=== PATIENT | male | born 1960 | race Caucasian/White ===

== ENCOUNTER 2016-12-22 20:39 | Inpatient (IN) | payer BC ==
[~2016-12-22] VITALS: Ht 177.8 cm; Wt 104.3 kg
[~2016-12-22 20:39] MED LIST: ACET-2154 PO; BUPR8TAB4 SL; CIME800T PO; DIPH50LI PO; HYDR118S4 TP; HYDR28CR45 TP; LORA2TAB95 PO; QUET300T2 PO; SULF1TAB48 PO; [UNRECOGNIZED DRUG - CODE] TP; [UNRECOGNIZED DRUG - CODE] TP
--- NOTE | 2016-12-22 21:35 | NUR ---
Staff attempted to start IV line for patient. Immediately after the initial puncture patient stated "did you get it" after which he demanded someone else and arguing with staff. Staff attempted to provide education regarding venipuncture procedures and patient remained argumentative with staff.
[2016-12-22 21:43] LABS: BASOPHILS % (AUTO) 0.7 % (0.0-2.0); EOSINOPHILS # (AUTO) 0.2 K/uL (0.0-0.7); EOSINOPHILS % (AUTO) 4.6 % (0.0-7.0); LYMPHOCYTES % (AUTO) 22.1 % (20.5-51.5); MEAN CORPUSCULAR HEMOGLOBIN 22.5 UUG (27.0-31.0); MEAN CORPUSCULAR HGB CONC 31 g/dL (32.0-37.0); MONOCYTES # (AUTO) 0.5 K/UL (0.1-1.30); MONOCYTES % (AUTO) 10.6 % (0.0-11.0); NEUTROPHILS # (AUTO) 2.9 K/UL (1.8-8.9); PLATELET COUNT (AUTO) 254 K/UL (150-450); RED BLOOD CELL COUNT(AUTO) 3.04 MIL/UL (4.7-6.1); WHITE BLOOD COUNT (AUTO) 4.6 K/UL (4.0-11.2)
[2016-12-22 21:52] LABS: CREATININE 1.1 mg/dL (0.6-1.3); POTASSIUM 3.1 mmol/L (3.5-5.1)
[2016-12-22 21:55] LABS: HEMATOCRIT 22.2 % (40-50); HEMOGLOBIN 6.8 G/DL (14.0-18.0)
[2016-12-22 22:04] LABS: BILIRUBIN,TOTAL 0.2 mg/dL (0.2-1.0); TOTAL PROTEIN, SERUM 6.1 g/dL (6.4-8.2)
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
[2016-12-22 22:31] LABS: *BILIRUBIN,URIN NEGATIVE (NEGATIVE); *BLOOD, URINE NEGATIVE (NEGATIVE); *COLOR,URINE YELLOW (YELLOW); *KETONES,URINE NEGATIVE (NEGATIVE); *PROTEIN,URINE NEGATIVE (NEGATIVE); *UROBILINOGEN,URINE 0.2 E.U./dl (NORMAL); LEUKOCYTE ESTERASE ,URINE NEGATIVE (NEGATIVE); NITRITE, URINE NEGATIVE (NEGATIVE); PH,URINE 7.5 (5.0-8.0); UGLUCOSE NEGATIVE (NEGATIVE)
[2016-12-22] MEDS ORDERED: POTASSIUM CHLORIDE 20 MEQ TAB.PRT.SR PO ONE (22:33)
[2016-12-22 22:40] LABS: *CLARITY,URINE CLEAR (CLEAR)
[2016-12-22 22:44] LABS: BACTERIA,URINE FEW /HPF (NONE SEEN); RBC,URINE 0-3 /HPF (0-3); SQUAMOUS EPITHELIAL CELL,UR FEW /HPF (NONE SEEN); URINE AMORPHOUS PHOSPHATES MODERATE /HPF; WBC,URINE 0-3 /HPF (0-3)
[2016-12-22 22:51] LABS: EOSINOPHILS % (MANUAL) 4 % (0-8); LYMPHOCYTES % (MANUAL) 23 % (20-40); MONOCYTES % (MANUAL) 8 % (2-10); NEUTROPHILS % (MANUAL) 65 % (42-75)
--- NOTE | 2016-12-22 23:00 | NUR ---
admit order written, belongings list done, pt was given asandwich to eat. awaiting dfor floor nurse to call back for report.
[2016-12-22] MEDS ORDERED: POTASSIUM CHLORIDE 20 MEQ TAB.PRT.SR ONE (23:05)
--- NOTE | 2016-12-22 23:17 | NUR ---
REPORT TO ONRU HI. PT TO ROOM 204 VIA W/C.
[2016-12-22] MEDS ORDERED: HYDROMORPHONE 1 MG/1 ML DISP.SYRIN IV PRN (23:45)
[2016-12-22] MEDS ORDERED: LORAZEPAM 1 MG TABLET PO PRN (23:45)
[2016-12-22] MEDS ORDERED: POTASSIUM CHLORIDE 20 MEQ in IV 1/2NS 1000 ML 1,000 ML IV PRN (23:45)
[2016-12-22] MEDS ORDERED: ACETAMINOPHEN 325 MG TABLET PO PRN (23:45)
[2016-12-22] MEDS ORDERED: Medication Not On Formulary EA (Quetiapine Fumarate (Seroquel) 300 MG) PO SCH (23:45)
[2016-12-22] MEDS ORDERED: MAGNESIUM HYDROXIDE 30 ML LIQUID UDC PO PRN (23:45)
[2016-12-22] MEDS ORDERED: ONDANSETRON 4 MG/2 ML VIAL IV PRN (23:45)
[2016-12-23] VITALS (12 sets, daily range): BP systolic 99–162; BP diastolic 45–78
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
[2016-12-23] MEDS ORDERED: HYDROMORPHONE 2 MG/1 ML DISP.SYRIN ONE ×2 (00:04→04:15)
[2016-12-23 00:17] LABS: IRON, SERUM 13 ug/dL (50-175)
[2016-12-23] MEDS: diphenhydrAMINE 50 MG/1 ML VIAL IV PRN ×2 (00:58→06:34)
[2016-12-23] MEDS ORDERED: diphenhydrAMINE 50 MG/1 ML VIAL ONE ×2 (01:08→06:38)
[2016-12-23] MEDS ORDERED: LORAZEPAM 1 MG TABLET ONE (01:09)
--- NOTE | 2016-12-23 01:44 | NUR ---
HGB AND HCT ARE LOW, ORDERED AND STARTED BLOOD TRANSFUSION 1 U PRBC WITH SINGED CONSENT. VITAL SIGNS ARE STABLE. MONITORED FOR BLOOD TRANSFUSION REACTION.
--- NOTE | 2016-12-23 03:40 | NUR ---
BLOOD TRANSFUSION COMPLETED. NO BLOOD TRANSFUSION REACTION NOTED. COMPLAINT OF PAIN AGAIN GIVEN IV DILAUDID, KEEP COMPLAINING THAT THE DOSE IS NOT ENOUGH TO RELIEVE HIS PAIN. STARTED IVF 0.45 NS WITH 20 MEQ KCL BUT PATIENT PULLED OUT AND STOP IVF, WALKED OUTSIDE THE ROOM. HE WAS MAD YELLING AT ME ASKING FOR CHARGE NURSE AND FOODS COMPLAINING HE IS DEHYDRATED DESPITE OF THE JELLO AND JUICE HE HAD SINCE LAST NIGHT. OTHERWISE PATIENT IS IN THE ROOM RIGHT NOW. SR ON TELE. VSS. CALL HI WITHIN REACH.
--- NOTE | 2016-12-23 05:30 | NUR ---
PATIENT SMOKED IN SIDE THE ROOM AGAIN FOR THE SECOND TIME, CONFISCATED CIGARETTE. SECURITY CALLED.
[2016-12-23 06:37] LABS: BASOPHILS % (AUTO) 0.6 % (0.0-2.0); EOSINOPHILS # (AUTO) 0.2 K/uL (0.0-0.7); EOSINOPHILS % (AUTO) 5.7 % (0.0-7.0); HEMOGLOBIN 7.4 G/DL (14.0-18.0); LYMPHOCYTES # (AUTO) 1.1 K/UL (0.8-4.8); LYMPHOCYTES % (AUTO) 28.5 % (20.5-51.5); MEAN CORPUSCULAR HEMOGLOBIN 23.6 UUG (27.0-31.0); MEAN CORPUSCULAR HGB CONC 32 g/dL (32.0-37.0); MEAN CORPUSCULAR VOLUME 74.4 FL (82.0-92.0); MONOCYTES # (AUTO) 0.5 K/UL (0.1-1.30); MONOCYTES % (AUTO) 12.9 % (0.0-11.0); NEUTROPHILS % (AUTO) 52.3 % (38.5-71.5); PLATELET COUNT (AUTO) 207 K/UL (150-450); RED BLOOD CELL COUNT(AUTO) 3.13 MIL/UL (4.7-6.1); WHITE BLOOD COUNT (AUTO) 3.8 K/UL (4.0-11.2)
[2016-12-23 06:41] LABS: HEMATOCRIT 23.3 % (40-50)
--- NOTE | 2016-12-23 06:42 | NUR ---
LAB CALLED FOR CRITICAL HGB RESULT OF 7.4 AFTER 1 U PRBC.TRENDING UP FROM 6.8 MG/DL.
[2016-12-23 07:04] LABS: THYROID STIMULATING HORMONE 2.278 mIU/mL (0.358-3.740)
[2016-12-23] MEDS ORDERED: PANTOPRAZOLE SODIUM 40 MG TABLET.DR PO SCH (07:10)
[2016-12-23 07:11] LABS: BILIRUBIN,TOTAL 0.8 mg/dL (0.2-1.0); CREATININE 1.1 mg/dL (0.6-1.3); POTASSIUM 4.1 mmol/L (3.5-5.1); TOTAL PROTEIN, SERUM 5.5 g/dL (6.4-8.2)
--- NOTE | 2016-12-23 07:20 | NUR ---
RECEIVED REPORT FROM ROAD CONTRACTOR NURSE, PATIENT IN BED ASLEEP, NO EVIDENCE OF DISTRESS NOTED AT THIS TIME. BED IN LOW POSITION, SIDE RAILS UP X2.
[2016-12-23 07:32] LABS: EOSINOPHILS % (MANUAL) 4 % (0-8); LYMPHOCYTES % (MANUAL) 34 % (20-40); MONOCYTES % (MANUAL) 7 % (2-10); NEUTROPHILS % (MANUAL) 55 % (42-75)
[2016-12-23] MEDS: HYDROMORPHONE 2 MG/1 ML DISP.SYRIN IV PRN ×2 (08:15→12:17)
--- NOTE | 2016-12-23 11:00 | NUR ---
BLOOD ORDERS RECEIVED AND STARTED ORDERED.
[2016-12-23] MEDS ORDERED: DOXY100C2 PO (13:44)
[2016-12-23] MEDS ORDERED: FERR325T28 PO (13:44)
--- NOTE | 2016-12-23 13:50 | NUR ---
BLOOD ADMINISTRATION COMPLETE, PATIENT BEING BELLIGERENT AND YELLING THAT HE NEEDS TO GO OUT AND HAVE A CIGARETTE, BEING UNCOOPERATIVE WITH VITALS BEING TAKEN AND DEMANDING THAT THE IV BE TAKEN OUT OF HIS ARM.
--- NOTE | 2016-12-23 14:06 | NUR ---
WOUND CARE CONSULT: PT OFF UNIT AT THIS TIME. WILL SEE PT FOR SKIN ASSESSMENT PT CONDITION PERMITS.
--- NOTE | 2016-12-23 14:10 | NUR ---
IV REMOVED, BLOOD STOPPED AND PATIENT DISCHARGE IS BEING PROCESSED.
--- NOTE | 2016-12-23 15:00 | NUR ---
PATIENT WAS ESCORTED OUT BY SECURITY PATIENT REFUSED TO TAKE A WHEELCHAIR.
[2016-12-23] MEDS ORDERED: QUETIAPINE FUMARATE 200 MG TABLET PO SCH (21:00)
[2016-12-23] MEDS ORDERED: DOCUSATE SODIUM 100 MG CAPSULE PO SCH (21:00)
== END 2016-12-23 15:00 | disposition home or self-care (01) | DRG 812 ==
LOC: ER 20:40 → TELE 22:55 → MED 12-23 12:04
PROVIDERS: ADMIT Internal Medicine; ATTEND Internal Medicine
PROC: 30233N1 Transfusion of Nonautologous Red Blood Cells into Peripheral Vein, Percutaneous Approach (ICD-10-PCS; principal; 2016-12-23)
DX: D50.9 Iron deficiency anemia, unspecified (principal); L03.115 Cellulitis of right lower limb; S91.301A Unspecified open wound, right foot, initial encounter; E87.6 Hypokalemia; E66.9 Obesity, unspecified; F11.11 Opioid abuse, in remission; F14.11 Cocaine abuse, in remission; F41.9 Anxiety disorder, unspecified; F17.210 Nicotine dependence, cigarettes, uncomplicated; R19.5 Other fecal abnormalities; F99 Mental disorder, not otherwise specified; R21 Rash and other nonspecific skin eruption; X58.XXXA Exposure to other specified factors, initial encounter; Y93.9 Activity, unspecified; Y92.009 Unspecified place in unspecified non-institutional (private) residence as the place of occurrence of the external cause; Z68.33 Body mass index [BMI] 33.0-33.9, adult; Z88.0 Allergy status to penicillin; F13.11 Sedative, hypnotic or anxiolytic abuse, in remission; F19.11 Other psychoactive substance abuse, in remission
CPT/HCPCS: 36415; 70030-TC; 71010; 83550; 84443; 85025; 85610; 86850; 86900; 86901; 86920; 93005; A4663; J1170; J1200; J3480; J3490; J7040; J7050; P9016-BL; P9021

== ENCOUNTER 2017-02-27 19:46 | Emergency (ER) | payer BC ==
[~2017-02-27] VITALS: Ht 177.8 cm; Wt 99.8 kg
[~2017-02-27 19:46] MED LIST changes: +DOXY100C2 PO; +FERR325T28 PO
[2017-02-27 20:45] LABS: BASOPHILS % (AUTO) 0.7 % (0.0-2.0); EOSINOPHILS # (AUTO) 0.3 K/uL (0.0-0.7); EOSINOPHILS % (AUTO) 4.4 % (0.0-7.0); HEMATOCRIT 37.2 % (36.7-47.1); HEMOGLOBIN 12.3 g/dL (12.5-16.3); LYMPHOCYTES % (AUTO) 15.3 % (20.5-51.5); MEAN CORPUSCULAR HGB CONC 33 g/dL (32.5-36.3); MEAN CORPUSCULAR VOLUME 84.8 fL (73.0-96.2); MONOCYTES # (AUTO) 0.4 K/uL (2.0-10.0); MONOCYTES % (AUTO) 6.9 % (0.0-11.0); NEUTROPHILS # (AUTO) 4.5 K/uL (1.8-8.9); NEUTROPHILS % (AUTO) 72.7 % (38.5-71.5); PLATELET COUNT (AUTO) 249 K/uL (152-348); RED BLOOD CELL COUNT(AUTO) 4.39 MIL/uL (4.06-5.63); WHITE BLOOD COUNT (AUTO) 6.2 K/uL (3.6-10.2)
[2017-02-27 21:03] LABS: CREATININE 0.8 mg/dL (0.6-1.3); POTASSIUM 4.2 mmol/L (3.5-5.1)
--- NOTE | 2017-02-27 21:25 | NUR ---
Patient discharged to home in stable conditon, ambulated out of ER with steady gait. Written and verbal after care instructions given as well as RX. Patient verbalizes understanding of instructions.
[2017-02-27 21:34] VITALS: BP 118/71
== END 2017-02-27 21:25 | disposition home or self-care (01) ==
LOC: ER 19:47
DX: B86 Scabies (principal); M25.562 Pain in left knee; Z88.0 Allergy status to penicillin; Z88.6 Allergy status to analgesic agent; Z91.013 Allergy to seafood
CPT/HCPCS: 36415; 73130; 85025; A4663

== ENCOUNTER 2018-05-03 16:35 | Emergency (ER) | payer BC ==
[~2018-05-03] VITALS: Ht 177.8 cm; Wt 99.8 kg
[~2018-05-03 16:35] MED LIST changes: -SULF1TAB48 PO
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
--- NOTE | 2018-05-03 16:53 | NUR ---
GRAHAM ISABEL AT BEDSIDE FOR MSE.
[2018-05-03] MEDS ORDERED: HYDROCODONE/APAP 10-325 MG TABLET PO ONE (17:00)
[2018-05-03] MEDS ORDERED: HYDROCODONE/APAP 10-325 MG TABLET ONE (17:03)
--- NOTE | 2018-05-03 18:04 | NUR ---
JOSEPH MAGANA CALLED. PT IN THE HALLWAY, SCREAMING, VERBALLY AGGRESSIVE AND INITIATED PHYSICAL CONTACT W/ AN ER STAFF. MORTGAGE PROCESSING CLERK IN THE HALLWAY. SITUATION DE-ESCALATED, PT D/C. PT PROVIDED W/ D/C INSTRUCTIONS. PT REFUSES TO SIGN D/C PAPERWORK AND REFUSES TO ACCEPT D/C PAPERWORK.
[2018-05-03 18:08] VITALS: BP 118/75
== END 2018-05-03 18:09 | disposition home or self-care (01) ==
LOC: ER 16:35
DX: S60.212A Contusion of left wrist, initial encounter (principal); R22.42 Localized swelling, mass and lump, left lower limb; Z86.2 Personal history of diseases of the blood and blood-forming organs and certain disorders involving the immune mechanism; Z88.0 Allergy status to penicillin; Z91.018 Allergy to other foods; Z88.8 Allergy status to other drugs, medicaments and biological substances; Z79.2 Long term (current) use of antibiotics; Z79.899 Other long term (current) drug therapy; W05.1XXA Fall from non-moving nonmotorized scooter, initial encounter; Y93.89 Activity, other specified; Y92.89 Other specified places as the place of occurrence of the external cause; Y99.8 Other external cause status
CPT/HCPCS: 73110; A4663